=== PATIENT | female | born 1970 | race Caucasian/White ===

== ENCOUNTER 2025-01-13 | Emergency (ER) | payer OTHER ==
[~2025-01-13] VITALS: Ht 172.7 cm; Wt 98.7 kg
[2025-01-13] MEDS: HYDROcodone/acetaminophen 10/325mg tab PO ONE (01:20)
--- NOTE | 2025-01-13 01:27 | Physician Documentation ---
History of Present Illness ~ Chief Complaint: Back Pain Stated Complaint: LEG PAIN Time Seen by MD: 01:24 OK to notify your PCP?: Yes Source: patient, RN/MD, RN notes reviewed, old records Mode of Arrival: POV, Ambulatory Exam Limitations: no limitations HPI 54 year old female with history of nerve pain seen in bed 08 presents to the emergency department or complaints of back pain that has been present for two days. She states that 12 weeks ago she had a back surgery. Since the surgery her nerve pain has improved. Two days she began to have foot pain when walking as well as nerve pain in her right leg that has been radiating down her entire leg. She states she has been taking muscle relaxants and lyrica for her pain. Medication Reconciliation Allergies: Coded Allergies: No Known Allergies (Unverified , 01/13/25) Scheduled Prednisone* (Prednisone*), 2 TAB PO DAILY Scheduled PRN Tramadol HCl (Tramadol HCl), 1 TAB PO Q12H PRN PRN for pain Past Medical History Past Medical History: Chronic Pain, Chronic Back Pain Past Surgical History: other Review of Systems All Other Systems at this time: Reviewed and Negative ROS As stated above in the HPI, otherwise all systems are reviewed and negative. Physical Exam Physical Exam Vital Signs: RN Vital Signs have been reviewed: Yes, Temperature: 98.6, Source: Oral, Heart Rate: 87, Respiratory Rate: 16, BP: 137/77, Pulse Oximetry: 97, Weight: 98.700 Oxygen Flow Rate: 0 Pulse Oximetry Reflects: adequate oxygenation Physical Exam General: The patient is well developed, well nourished, nontoxic appearing and is in no acute distress. Skin: [place], warm and dry with no rashes. HEENT: Head was normocephalic and atraumatic. Eyes - pupils equal, round, reactive to light and accommodation. Extraocular movements were intact. Conjunctivae were nonicteric. Ears - bilateral tympanic membranes were normal. The mouth and oropharynx were clear with moist mucous membranes. There were no pharyngeal exudates or erythema. Neck: Supple and nontender. There was no jugular venous distention, lymphadenopathy, thyromegaly or masses. Chest: Clear to auscultation bilaterally without wheezes, rales or rhonchi. No accessory muscle use. No dullness to percussion. Heart: Rate regular and rhythmic. S1, S2. No murmurs. Palpation of the chest wall was normal. No rubs or thrills. Abdomen: Soft, nontender and nondistended. Positive bowel sounds. No guarding or rebound. No hepatosplenomegaly or palpable masses. Extremities: Positive straight leg test at 90 degrees. No cyanosis, clubbing or edema. The patient moves all extremities. Pulses were equal and symmetric. Neurologic: Cranial nerves II-XII were intact. Sensation was intact to light touch throughout. Motor strength was 5/5 in all four extremities. Deep tendon reflexes were intact in both upper and lower extremities. Psychologic: The patient was oriented to person, place and time. The patient demonstrated appropriate judgement and insight. Progress Results/Orders Reviewed/noted all lab results: Yes Results/Orders Orders - SON JONAS MD Ct Lumbar Spine (01/13/25 00:33) Completed Orders - SON JONAS MD Ct Lumbar Spine (01/13/25 00:33) Hydrocodone/Apap 10/325 (Heidrick 10/325mg (01/13/25 01:15) Triamcinolone Acet 40mg/Ml Inj (Kenalog- (01/13/25 02:15) Tramadol Tablet (Ultram Tablet) (01/13/25 02:15) Prednisone Tablet (Prednisone Tablet) (01/13/25 02:40) Medications Received in ER Medications (Trade) Dose Ordered Sig/Bonifacio Route PRN Reason Start Time Stop Time Status Last Admin Dose Admin (Heidrick 10/325mg tab) 1 tab ONCE ONCE PO 01/13/25 01:15 01/13/25 01:16 DC 01/13/25 01:20 1 TAB (Ultram tablet) 100 mg ONCE ONCE PO 01/13/25 02:15 01/13/25 02:23 DC 01/13/25 02:52 100 MG Vital Signs 01/13/25 01/13/25 01/13/25 01/13/25 00:08 00:40 00:40 01:20 Temp 98.6 Pulse 89 87 Resp 16 16 16 16 B/P (MAP) 95/72 137/77 (97) Pulse Ox 98 97 O2 Flow Rate 0 0 01/13/25 03:00 Temp 98.6 Pulse 76 Resp 16 B/P (MAP) 148/82 Pulse Ox 98 Re-Evaluation Re-Evaluation : Re-Evaluation: Improved Progress Patient was seen and examined. Patient was given reassurance. Patient was having worsening pain. CT scan was obtained no signs of any abscess or postsurgical changes to suggest any significant disease. She does have some chronic arthritic changes with bone spurs and disc disease was noted. Patient was given Heidrick 10 mg for pain later for her inflammatory process Kenalog IM was ordered but apparently unavailable so instead patient received 60 mg of prednisone and now a prednisone taper also patient received tramadol and a prescription for the same. Patient was feeling a bit better. Afterwards patient was then discharged home to follow up with her PMD as needed. Return if she develops fever signs of infection or worsening symptoms. Also she develops bowel or bladder incontinence. EKG/XRAY/CT/US/VASC/MRI CT : Impression EXAM: CT CT LUMBAR SPINE HISTORY: post op pain COMPARISON: None CTDIvol 31.19 mGy, DLP 1184.67 mGy*cm. TECHNIQUE: Multiple axial CT images of the spine were obtained using bone algorithm. Axial and coronal reformatting was done. Bone and soft tissue wi ndows were reviewed. FINDINGS: Hardware at the L4 through S1 level status post posterior lumbar interbody fusion. No evidence of hardware complication. Multilevel spondylolisthesis includes 3 mm of retrolisthesis of L1 on L2, 7 mm of retrolisthesis of L2 on L3 and 3 mm of retrolisthesis of L3 on L4. Moderate to severe disc height loss at the L4-L5 level with adjacent endplate sclerosis anterior osteophytosis. Chronic appearing anterior wedging deformity of the T12 and L1 vertebral bodies has resulted in less than 25% anterior height loss at each level. Multilevel disc osteophyte complex formation with associated bilateral neural foraminal narrowing. No CT evidence of definite acute fracture or spinal dislocation. The visualized paraspinal soft tissues are grossly unremarkable. Nonobstructive calculus within the right inferior renal pole. IMPRESSION: 1. Multilevel degenerative and postsurgical change including multilevel spondylolisthesis of the lumbar spine without evidence of acute osseous abnor mality or hardware complication. 2. Multilevel disc osteophyte complex formation contributing to neural foraminal narrowing. 3. Nonobstructive right nephrolithiasis. Electronically Signed by:CAYETANO ONOFRE MD Date & Time: 01/13/25 0137 Medical Decision Making Additional info obtained from: old records Differential Dx:Considerations: Include: Aortic dissection, , Jose endicitis, Bowel obstruction, Cholelithiasis, Cholangitis, DJD, Fracture, Musculoskeletal pain, Pancreatitis, Strain, Other Departure Time of Disposition: 02:23 Disposition: 01 HOME / SELF CARE / HOMELESS Impression: Primary Impression: Low back pain Qualified Codes: M54.41 - Lumbago with sciatica, right side Additional Impression: Sciatica Qualified Codes: M54.31 - Sciatica, right side Condition: Stable Discharge Instructions: Chronic Back Pain Referrals: NO PRIMARY CARE PROVIDER (PCP) Prescriptions Prednisone* (Prednisone*) 20 Mg Tablet 2 TAB PO DAILY, #11 TAB Prov: SON JONAS MD 01/13/25 Tramadol HCl (Tramadol HCl) 50 Mg Tablet 1 TAB PO Q12H PRN PRN for pain for 10 Days, #20 TAB Prov: SON JONAS MD 01/13/25 Education Educated: Patient Educated regarding: diagnosis, treatment, prognosis, need for follow up Signature Scribe Signature: Scribed for Son Jonas MD by Denilson Velazquez . 01/13/25 02:23 Attestation: The note accurately reflects work and decisions made by me.Son Jonas MD 01/13/25 01:27 SON JONAS MD Jan 13, 2025 01:27 DENILSON NUGENT Jan 13, 2025 02:23
--- NOTE | 2025-01-13 01:40 | RADIOLOGY REPORT ---
EXAM: CT CT LUMBAR SPINE HISTORY: post op pain COMPARISON: None CTDIvol 31.19 mGy, DLP 1184.67 mGy*cm. TECHNIQUE: Multiple axial CT images of the spine were obtained using bone algorithm. Axial and coron al reformatting was done. Bone and soft tissue windows were reviewed. FINDINGS: Hardware at the L4 through S1 level status post posterior lumbar interbody fusion. No evidence of welsh rdware complication. Multilevel spondylolisthesis includes 3 mm of retrolisthesis of L1 on L2, 7 mm o f retrolisthesis of L2 on L3 and 3 mm of retrolisthesis of L3 on L4. Moderate to severe disc height loss at the L4-L5 level with adjacent endplate sclerosis anterior oste ophytosis. Chronic appearing anterior wedging deformity of the T12 and L1 vertebral bodies has resul lidia in less than 25% anterior height loss at each level. Multilevel disc osteophyte complex formation with associated bilateral neural foraminal narrowing. No CT evidence of definite acute fracture or spinal dislocation. The visualized paraspinal soft tissu es are grossly unremarkable. Nonobstructive calculus within the right inferior renal pole. IMPRESSION: 1. Multilevel degenerative and postsurgical change including multilevel spondylolisthesis of the lumb ar spine without evidence of acute osseous abnormality or hardware complication. 2. Multilevel disc osteophyte complex formation contributing to neural foraminal narrowing. 3. Nonobstructive right nephrolithiasis.
[2025-01-13] MEDS ORDERED: triamcinolone acetonide 40mg/ml inj IM ONE (02:15)
[2025-01-13] MEDS ORDERED: TRAM50TA2 PO (02:34)
[2025-01-13] MEDS ORDERED: PRED20TA PO (02:40)
[2025-01-13 03:00] VITALS: BP 148/82; PULSE 76; RESP 16; TEMP 98.6; O2SAT 98
== END 2025-01-13 03:02 | disposition home or self-care (01) ==
LOC: ER 00:01
DX: M54.50 Low back pain, unspecified (principal); M79.604 Pain in right leg; Z79.899 Other long term (current) drug therapy
CPT/HCPCS: 72131; 99284